=== PATIENT | male | born 1955 | race Caucasian/White ===

== ENCOUNTER 2021-09-08 13:50 | Observation (INO) | payer OTHER ==
[~2021-09-08] VITALS: Ht 175.3 cm; Wt 96.6 kg
[2021-09-08 14:00] VITALS: BP_SYST 122
[2021-09-08 14:47] LABS: BASOPHILS % (AUTO) 0.4 % (0.0-2.0); EOSINOPHILS # (AUTO) 0.1 K/uL (0.0-0.4); HEMATOCRIT 46.6 % (36-54); HEMOGLOBIN 15.8 g/dL (14.0-18.0); LYMPHOCYTES % (AUTO) 10.2 % (20.5-51.5); MEAN CORPUSCULAR HEMOGLOBIN 31 pg (27-31); MEAN CORPUSCULAR HGB CONC 34 % (32-36); MEAN CORPUSCULAR VOLUME 91 fL (79.0-98.0); MONOCYTES # (AUTO) 1.2 K/uL (0.0-1.0); MONOCYTES % (AUTO) 12.3 % (1.7-9.3); NEUTROPHILS # (AUTO) 7.3 K/uL (1.8-7.7); NEUTROPHILS % (AUTO) 76.1 % (40.0-70.0); PLATELET COUNT (AUTO) 226 K/uL (130-430); RED BLOOD CELL COUNT(AUTO) 5.13 MIL/uL (4.2-6.2); RED CELL DISTRIBUTION WIDTH 13.8 % (9.0-15.0); WHITE BLOOD COUNT (AUTO) 9.6 K/uL (4.8-10.8)
[2021-09-08 15:10] LABS: CALCIUM 9.1 mg/dL (8.4-11.0); CREATININE 1.02 mg/dL (0.55-1.30); POTASSIUM 4.9 mmol/L (3.5-5.1)
[2021-09-08 15:16] LABS: ALBUMIN 3.8 g/dL (3.4-4.8); TOTAL BILIRUBIN 2.9 mg/dL (0.0-1.0)
[2021-09-08 16:33] LABS: BILIRUBIN,URINE NEGATIVE (NEGATIVE); BLOOD, URINE NEGATIVE (NEGATIVE); COLOR,URINE YELLOW (YELLOW); GLUCOSE,URINE NEGATIVE (NEGATIVE); KETONES,URINE NEGATIVE (NEGATIVE); LEUKOCYTE ESTERASE ,URINE NEGATIVE (NEGATIVE); NITRITE, URINE NEGATIVE (NEGATIVE); PROTEIN URINE NEGATIVE (NEGATIVE); UROBILINOGEN,URINE 0.2 (0.2-1.0)
[2021-09-08 16:47] LABS: CLARITY/URINE SLIGHTLY HAZY (CLEAR)
[2021-09-08] MEDS ORDERED: MORPHINE 4 MG INJ. 4 MG/ML VIAL IVP ONE (17:15)
[2021-09-08] MEDS ORDERED: IOHEXOL 350 mgI/mL, 150 ML INFUS..BTL IV ONE (17:35)
[2021-09-08] MEDS ORDERED: CYCLOBENZAPRINE HCL 10 MG TABLET (FLEXERIL) PO ONE (18:00)
[2021-09-08] MEDS ORDERED: KETOROLAC TROMETHAMINE 30 MG VIAL IVP ONE (18:00)
[2021-09-08] MEDS ORDERED: LOSA50TA3 PO (18:19)
[2021-09-08] MEDS ORDERED: LEVO500T89 PO (18:19)
[2021-09-08] MEDS ORDERED: FISH12002 PO (18:19)
[2021-09-08] MEDS ORDERED: LACT10SO7 PO (18:19)
[2021-09-08] MEDS ORDERED: ACET325T PO (18:19)
[2021-09-08] MEDS ORDERED: ATEN-41 PO (18:19)
[2021-09-08] MEDS ORDERED: SENN8.6T19 PO (18:19)
[2021-09-08] MEDS ORDERED: LACT1CAP61 PO (18:19)
[2021-09-08] MEDS ORDERED: MULT-300 PO (18:19)
[2021-09-08] MEDS ORDERED: LIP40 PO (18:19)
[2021-09-08] MEDS ORDERED: ALBU2.5V7 INH (18:19)
[2021-09-08] MEDS ORDERED: MELA5TAB21 PO (18:19)
[2021-09-08] MEDS ORDERED: ASPI-862 PO (18:19)
[2021-09-08] MEDS ORDERED: DOCU-144 PO (18:19)
[2021-09-08 19:57] VITALS: BP_SYST 111
[2021-09-08 20:00] VITALS: BP_SYST 111
[2021-09-08] MEDS ORDERED: HYDROcodone/ACETAMIN 10-325 MG TAB PO PRN (20:00)
[2021-09-08] MEDS ORDERED: LORazepam 2 MG/ML VIAL IVP PRN (20:00)
[2021-09-08] MEDS ORDERED: ALBUTEROL SULFATE 0.083% 2.5 MG/3 ML VIAL.NEB INH PRN (20:00)
[2021-09-08] MEDS ORDERED: ONDANSETRON HCL 4 MG/2 ML VIAL IVP PRN (20:00)
[2021-09-08] MEDS ORDERED: ACETAMINOPHEN 325 MG TABLET PO PRN ×2 (20:00)
[2021-09-08] MEDS ORDERED: HYDROcodone/ACETAMIN 5-325 MG TAB (NORCO/ VICODIN) PO PRN (20:00)
[2021-09-08] MEDS ORDERED: NALOXONE HCL 0.4 MG/ML AMP (NARCAN) IVP PRN ×2 (20:00)
[2021-09-08] MEDS ORDERED: DOCUSATE SODIUM 100 MG CAPSULE PO PRN (20:00)
[2021-09-08] MEDS ORDERED: NON-FORMULARY MEDICATION (Lactulose 20 GM) PO SCH (20:00)
[2021-09-08] MEDS ORDERED: ATORVASTATIN 20 MG TABLET PO SCH (21:00)
[2021-09-08] MEDS: LOSARTAN POTASSIUM 50 MG TABLET (COZAAR) PO SCH (21:00)
[2021-09-08 21:59] VITALS: BP_SYST 111
[2021-09-08] MEDS ORDERED: NORMAL SALINE 5 ML DISP.SYRIN IVF SCH (22:00)
[2021-09-09 00:24] VITALS: BP_SYST 118
[2021-09-09] MEDS: NORMAL SALINE 5 ML DISP.SYRIN IVF SCH ×2 (04:00→05:47)
[2021-09-09 06:26] LABS: BASOPHILS % (AUTO) 0.3 % (0.0-2.0); EOSINOPHILS # (AUTO) 0.1 K/uL (0.0-0.4); EOSINOPHILS % (AUTO) 1.4 % (0.0-4.0); HEMATOCRIT 43.1 % (36-54); HEMOGLOBIN 14.7 g/dL (14.0-18.0); LYMPHOCYTES # (AUTO) 1.2 K/uL (1.0-5.5); LYMPHOCYTES % (AUTO) 15.3 % (20.5-51.5); MEAN CORPUSCULAR HEMOGLOBIN 31 pg (27-31); MEAN CORPUSCULAR HGB CONC 34 % (32-36); MEAN CORPUSCULAR VOLUME 91 fL (79.0-98.0); MONOCYTES # (AUTO) 1.1 K/uL (0.0-1.0); MONOCYTES % (AUTO) 13.8 % (1.7-9.3); NEUTROPHILS # (AUTO) 5.3 K/uL (1.8-7.7); NEUTROPHILS % (AUTO) 69.2 % (40.0-70.0); PLATELET COUNT (AUTO) 188 K/uL (130-430); RED BLOOD CELL COUNT(AUTO) 4.74 MIL/uL (4.2-6.2); RED CELL DISTRIBUTION WIDTH 13.5 % (9.0-15.0); WHITE BLOOD COUNT (AUTO) 7.7 K/uL (4.8-10.8)
[2021-09-09 07:52] LABS: ALANINE AMINOTRANSFERASE 25 U/L (12-78); ALBUMIN 3.1 g/dL (3.4-4.8); ANION GAP 8 (5-15); ASPARTATE AMINOTRANSFERASE 14 U/L (10-37); CALCIUM 8.8 mg/dL (8.4-11.0); CHLORIDE 102 mmol/L (98-107); CREATININE 1.13 mg/dL (0.55-1.30); GLUCOSE 107 mg/dL (70-99); PHOSPHORUS 3.7 mg/dL (2.7-4.5); POTASSIUM 4.5 mmol/L (3.5-5.1); SODIUM SERUM 137 mmol/L (136-145); THYROID STIMULATING HORMONE 1.46 uIu/mL (0.36-3.74); TOTAL BILIRUBIN 3.3 mg/dL (0.0-1.0); UREA NITROGEN, BLOOD 17 mg/dL (8-21)
[2021-09-09 08:17] VITALS: BP_SYST 131
[2021-09-09] MEDS: LOSARTAN POTASSIUM 50 MG TABLET (COZAAR) PO SCH (08:45)
[2021-09-09 09:00] LABS: GFR AFRICAN AMERICAN 84 mL/min (>90)
[2021-09-09] MEDS ORDERED: LACTOBACILLUS ACIDOPHILUS PO SCH (09:00)
[2021-09-09] MEDS ORDERED: levoFLOXacin 500 MG TABLET PO SCH (09:00)
[2021-09-09] MEDS ORDERED: OMEGA-3/DHA/EPA/FISH OIL 1 GM CAPSULE PO SCH (09:00)
[2021-09-09] MEDS ORDERED: ATENOLOL 25 MG TABLET(TENORMIN) PO SCH (09:00)
[2021-09-09] MEDS ORDERED: MULTIVITS,CA,MINERALS/IRON/FA 1 TABLET PO SCH (09:00)
[2021-09-09] MEDS ORDERED: MULTIVITAMINS W MINERALS PO SCH (09:00)
[2021-09-09] MEDS ORDERED: SENNOSIDES 8.6 MG TABLET PO SCH (09:00)
[2021-09-09] MEDS ORDERED: ASPIRIN 325 MG TABLET (ECOTRIN) PO SCH (09:00)
[2021-09-09] MEDS ORDERED: LACTOBACILLUS RHAMNOSUS GG 1 CAP CAPSULE PO SCH (09:00)
[2021-09-09 09:11] LABS: CHOLESTEROL 131 mg/dL (<200); HDL CHOLESTEROL 44 mg/dL (>45); LDL CHOLESTEROL 74 mg/dL (<100); TRIGLYCERIDES 79 mg/dL (30-150)
[2021-09-09 12:27] VITALS: BP_SYST 128
[2021-09-09 15:25] VITALS: BP_SYST 130
[2021-09-09] MEDS ORDERED: MELATONIN 5 MG TABLET PO SCH (21:00)
== END 2021-09-09 16:06 | disposition home or self-care (01) ==
LOC: SED 13:50 → STU 17:33
PROVIDERS: ADMIT Preventive Medicine Preventive Medicine/Occupational Environmental Medicine; ATTEND Preventive Medicine Preventive Medicine/Occupational Environmental Medicine
DX: R07.89 Other chest pain (principal); Z20.822 Contact with and (suspected) exposure to COVID-19; I11.0 Hypertensive heart disease with heart failure; I50.32 Chronic diastolic (congestive) heart failure; E78.00 Pure hypercholesterolemia, unspecified; R73.9 Hyperglycemia, unspecified; E88.09 Other disorders of plasma-protein metabolism, not elsewhere classified; I25.5 Ischemic cardiomyopathy; E78.5 Hyperlipidemia, unspecified; S29.012A Strain of muscle and tendon of back wall of thorax, initial encounter; I34.0 Nonrheumatic mitral (valve) insufficiency; X58.XXXA Exposure to other specified factors, initial encounter; Y93.89 Activity, other specified; Y92.89 Other specified places as the place of occurrence of the external cause; Z95.5 Presence of coronary angioplasty implant and graft; Z79.899 Other long term (current) drug therapy
CPT/HCPCS: 36415 ×2; 71045; 71275; 76376; 80053 ×2; 80061; 81003; 83735; 83880; 84100; 84443; 84484 ×2; 85025 ×2; 85379; 87426; 93005; 93306; 96374; 99285; G0378 ×2; J1885; Q9967; J2270